=== PATIENT | male | born 1955 | race African-American/Black ===

== ENCOUNTER 2017-06-09 06:33 | Emergency (ER) | payer MEDICARE, OTHER ==
[~2017-06-09] VITALS: Ht 177.8 cm; Wt 88.0 kg
[~2017-06-09 06:33] MED LIST: ATOR10TA69 PO; BACL-141 PO; CHOL100026 PO; DOCU-150 PO; FINA5TAB11 PO; GABA-531 PO; KEFLEX PO; METF500T4 PO; SULF-165 PO; TAMS-11 PO
[2017-06-09] MEDS ORDERED: TRAMADOL 50MG TABLET PO ONE (07:45)
[2017-06-09 08:59] VITALS: BP 152/86
== END 2017-06-09 09:16 | disposition home or self-care (01) ==
LOC: ER 07:42
DX: S29.012A Strain of muscle and tendon of back wall of thorax, initial encounter (principal); W10.8XXA Fall (on) (from) other stairs and steps, initial encounter; Y93.89 Activity, other specified; Y92.89 Other specified places as the place of occurrence of the external cause; I10 Essential (primary) hypertension; E11.9 Type 2 diabetes mellitus without complications; F17.210 Nicotine dependence, cigarettes, uncomplicated; F12.90 Cannabis use, unspecified, uncomplicated; B19.10 Unspecified viral hepatitis B without hepatic coma; G89.29 Other chronic pain; M54.89 Other dorsalgia
CPT/HCPCS: 72070; 99284